=== PATIENT | male | born 1940 | race Caucasian/White ===

== ENCOUNTER → 2016-05-02 | Outpatient (CLI) | payer MEDICARE ==
[~2016-05-02] MED LIST: ACIDOPHILUS1 TAB PO; ADDERALL 20 MG20 MG PO; AFLEXA340 MG PO; ALEVE220 MG PO; ALLOPURINOL100 MG PO; AMOXICILLIN500 MG PO; ANDRO GEL; ANDROGEL2.5 GM T; ASPIRIN81 M1 PO; AUGMENTIN 875 M1 TAB PO; BACTRIM DS 8001 TAB PO; BEANO150 UNIT PO; CALCIUM600 M1 PO; CENTRUM SILVER1 TA1 PO; CENTRUM SILVER1 TA2 PO; CILOSTAZOL100 MG PO; CIPRO250 MG PO; CIPROFLOXACIN500 MG PO; CLARITIN10 MG PO; CODEINE30 MG PO; COENZYME Q-10200 M1 PO; COQ-10100 MG PO; COQ10150 MG PO; COZAAR50 MG PO; Clopidogrel75 MG PO; DICYCLOMINE10 MG PO; FISH OIL1000 MG PO; FLONASE 0.05% 121 EA NAS; GLUCOSAMINE & C1 CA2 PO; GLUCOSAMINE COM1 TAB PO; HYDROCHLOROTHIA25 M1 PO; HYDROCODONE BIT1 T11 PO; HYDRODIURIL25 MG PO; IMODIUM2 MG PO; INDOMETHACIN25 M1 PO; KEFLEX500 MG PO; KONDREMUL2.5 ML/5 M PO; LABETALOL HCL100 MG PO; LIDODERM 5% PATC1 EA PO; LODINE300 MG PO; LOMOTIL 0.025 M1 TA1 PO; LOPRESSOR25 MG PO; LOVAZA1 GM PO; LUNESTA3 MG PO; MASON NATURAL600 MG PO; MOBIC7.5 MG PO; MOTRIN800 MG PO; MULTIPLE VITAMI1 TAB PO; NIACIN500 MG PO; NORFLEX100 MG PO; NORVASC10 MG PO; OXYCONTIN10 MG PO; PEDIALYTE 1001000 ML PO; PLAVIX75 M1 PO; PLAVIX75 MG PO; POLY IRON PN1 TAB PO; POTASSIUM99 M3 PO; PREDNISONE10 MG PO; PREVACID30 MG PO; PRINIVIL20 MG PO; PROBIOTICA100 MILLIO PO; PROVENTIL0.09 MG/AC IH; PYRIDIUM200 MG PO; SIMVASTATIN40 MG PO; SOLARAZE3% T; TAMIFLU75 MG PO; TART CHERRY E1000 MG PO; TESSALON PERLE100 M1 PO; TESTOSTERONE GEL; TYLENOL325 M2 PO; ULTRAM50 MG PO; VIBRAMYCIN100 MG PO; VICO10300 PO; ZANTAC 150150 MG PO; ZOCOR40 MG PO; [UNRECOGNIZED DRUG - OTHER] PO
--- NOTE | ~2016-05-02 | ST ---
[place], [place] EXERCISE STRESS TEST REPORT NAME: GONZALO SY UNIT #: [id number] ROOM: DOCTOR: EVELYN MONTOYA MD BIRTHDATE: [birth year] DOS: 05/02/2016 RESULTS: Lexiscan per protocol. Baseline cardiogram, sinus rhythm with ST depression in the inferior and lateral leads and isolated PVCs. With Lexiscan, there is more pronounced ST depression in the inferior leads. The patient did not develop any chest discomfort. Blood pressure and heart rate response was normal. Nuclear images will be reported separately. FINAL IMPRESSION: Abnormal EKG response with more pronounced ST depression in the inferior leads. No chest discomfort. Blood pressure and heart rate response was normal. Nuclear images will be reported separately. EVELYN MONTOYA MD CM:STRESS:EXERCISE STRESS TEST REPORT [id number] EVELYN MONTOYA MD
== END | disposition home or self-care (01) ==
LOC: CARD 02:39
DX: Z01.810 Encounter for preprocedural cardiovascular examination (principal); I25.10 Atherosclerotic heart disease of native coronary artery without angina pectoris; R53.81 Other malaise

== ENCOUNTER → 2016-05-09 | Outpatient (CLI) | payer MEDICARE ==
[2016-05-09 10:59] LABS: CHOLESTEROL 268 mg/dL (<200); HDL CHOLESTEROL 48 mg/dl (40-60); TRIGLYCERIDES 500 mg/dl (<150)
== END | disposition home or self-care (01) ==
LOC: LAB 10:13
PROVIDERS: Internal Medicine Cardiovascular Disease
DX: E78.5 Hyperlipidemia, unspecified (principal)

== ENCOUNTER 2016-07-25 11:05 | Inpatient (IN) | payer MEDICARE ==
[~2016-07-25] VITALS: Ht 175.2 cm; Wt 79.0 kg
--- NOTE | ~2016-07-25 | WRIGHTHP ---
[place], [place] PATIENT HISTORY AND PHYSICAL EXAM NAME: GONZALO SY [facility] #: [id number] UNIT #: [id number] ROOM: 520 DOCTOR: GILBERT CHAVES MD BIRTHDATE: [birth year] DOS: 07/25/2016 HISTORY OF PRESENT ILLNESS: 1. The patient is a 75-year-old gentleman with a past medical history of recent surgery to the C-spine for chronic pain. 2. History of benign essential hypertension. 3. Vertebral artery occlusion, status post stent placement in the past at [facility]. 4. History of coronary artery disease status post coronary artery bypass graft and stenting of the coronaries at [facility] in the past. 5. History of ischemic colitis with gastrointestinal bleed in 2012. 6. Mixed hyperlipidemia. 7. Benign essential hypertension. The patient presented to the Emergency Department after he fell down steps, resulting in some pain and soreness in his left shoulder. The patient is not sure if he lost consciousness or hit his head. The patient had CT of the lumbar spine, cervical spine and CT of the head performed in the Emergency Department and recommended for admission for dehydration and hypokalemia. After admission, the patient is feeling well except for some soreness in the back of his left shoulder. No chest pain, no shortness of breath, no dizziness, no other GI or urinary symptoms. REVIEW OF SYSTEMS: LUNGS: No increasing shortness of breath or wheezing. GASTROINTESTINAL: No nausea, vomiting, diarrhea, constipation. CARDIOVASCULAR: No chest pain, no palpitations. SOCIAL HISTORY: Lives at home. Denies smoking cigarettes, alcohol and drug abuse. FAMILY HISTORY: Noncontributory. HOME MEDICATIONS: Potassium, labetalol, hydrochlorothiazide, fluoxetine, Plavix, amlodipine, allopurinol, Tylenol. ALLERGIES: Known allergies to ASPIRIN, METOPROLOL, COREG, TRAMADOL, MELOXICAM. PHYSICAL EXAMINATION: GENERAL: Alert and oriented. HEENT AND NECK: Extraocular movements are intact. Sclerae are anicteric. Oral mucosa is moist and clean. No obvious facial weakness. Neck is supple without any lymphadenopathy. No thyromegaly. No JVD. No carotid arterial bruits. LUNGS: Clear to auscultation. No wheezing. No rhonchi. CARDIOVASCULAR SYSTEM: Heart rate is regular in rate and rhythm. S1 and S2 normally audible. No significant murmur or any other abnormal cardiac sounds. ABDOMEN: Soft, nontender. No obvious organomegaly. Bowel sounds are present. No obvious herniation. EXTREMITIES: Without significant cyanosis or edema. Warm to touch. CENTRAL NERVOUS SYSTEM: Without any gross motor deficits. Speech is normal. [place], [place] PATIENT HISTORY AND PHYSICAL EXAM NAME: GONZALO SY UNIT #: [id number] ROOM: [facility] DOCTOR: GILBERT CHAVES MD BIRTHDATE: [birth year] Cranial nerves 2-12 are also intact. The patient is wearing a neck brace. LABORATORY DATA: CT of the head, cervical spine and lumbar spine without any acute abnormality. BUN and creatinine 29 and 1.5. Potassium level of 2.8, improved to 3.1. CPK 352. Normal CBC, PT, PTT. IMPRESSION: 1. The patient with a fall at home with a neck brace in place and some soreness in the left shoulder, but CAT scans of the head, neck and T-spine were without any acute abnormality. The patient had recent surgery to the cervical spine for chronic pains. The patient to be started on physical therapy, hydration with normal saline. 2. Dehydration, hypokalemia with elevation of BUN and creatinine, to be treated with normal saline infusion and extra potassium supplements for hypokalemia. 3. Hypokalemia, being treated with extra potassium supplements and BUN and creatinine and potassium levels are being monitored, will be rechecked in the morning. 4. Chronic gouty arthritis, treated with allopurinol, asymptomatic. 5. Benign essential hypertension. Blood pressures to be monitored, amlodipine and labetalol that he was taking at home have been continued. 6. Major depression, recurrent, mild. I will continue fluoxetine. 7. History of coronary artery disease of the [place] vessels without any chest pains. 8. Mixed hyperlipidemia for which the patient takes Pravachol. GILBERT CHAVES MD CM:HISPHYS:PATIENT HISTORY AND PHYSICAL EXAMINATION 58 15 GILBERT CHAVES MD 07/25/16 315 interface
--- NOTE | ~2016-07-25 | EKG ---
[place], [place] ELECTROCARDIOGRAM REPORT NAME: GONZALO SY UNIT #: [id number] ROOM: [facility] DOCTOR: EVELYN MONTOYA MD BIRTHDATE: [birth year] DOS: 07/25/2016 Time: 11:26:36. Normal sinus rhythm. Left axis deviation. Left anterior fascicular block. Intraventricular conduction delay with nonspecific ST-T changes. EVELYN MONTOYA MD CM:EKGRPT:ELECTROCARDIOGRAM REPORT [id number] EVELYN MONTOYA MD
--- NOTE | ~2016-07-25 | DS ---
[place], [place] DISCHARGE SUMMARY NAME: GONZALO SY [facility] #: [id number] UNIT #: [id number] ROOM: 520 DOCTOR: GILBERT CHAVES MD BIRTHDATE: [birth year] DOS: 07/26/2016 DISCHARGE DIAGNOSES: 1. The patient with fall at home and some left shoulder pains. 2. Recent neck surgery of the cervical spine, chronic pain. 3. Persistent and severe hypokalemia, treated. 4. Benign essential hypertension. 5. Major depression, recurrent, mild. 6. Coronary artery disease of [place] vessels with coronary artery bypass grafts at [facility] in the past. 7. Ischemic colitis with gastrointestinal bleed in 2012. 8. Mixed hyperlipidemia. 9. Benign essential hypertension. 10. Vertebral artery occlusion, status post stent placement at [facility] in the past. HOSPITAL COURSE: The patient presented to the Emergency Department after he slipped down the steps, but the steps were supposed to be well padded and he slid down on his back. The patient had recent surgery to his cervical spine, so there were concerns about injury and he had a CAT scan of his head, neck and thoracic spine, which did not show any acute abnormality. The patient had some left shoulder pains and he is being evaluated by physical therapy. The patient has been ambulating independently in the hallways with no significant neurological deficits compatible with spinal stenosis or any other severe injury. The patient is feeling very well and will be discharged to home after a complete evaluation by physical therapy and once he is cleared by them. Persistent hypokalemia from uncertain etiology. The patient has no nausea, vomiting or diarrhea. He just takes hydrochlorothiazide and was already on potassium supplements. Potassium supplements for increased from 10 to 20 mEq daily and he was given extra potassium during his stay at the hospital. The patient was given extra potassium this morning and a repeat level will be performed at noon. After his potassium is found to be normal and if cleared by physical therapy, he can be discharged to home on his home medications with increased dose of potassium to follow up with his PCP, Dr. Quintana, on Sunday. DISCHARGE MANAGEMENT: Potassium chloride 20 mEq daily, hydrochlorothiazide 25 mg a day, fluoxetine 20 mg a day, Plavix 75 mg a day, amlodipine 10 mg a day, allopurinol 100 mg a day, labetalol 100 mg t.i.d. Follow up with Dr. Quintana on Sunday. Fadia katz [place], [place] DISCHARGE SUMMARY NAME: GONZALO SY UNIT #: [id number] ROOM: [facility] DOCTOR: GILBERT CHAVES MD BIRTHDATE: [birth year] GILBERT CHAVES MD CM:YESSI [id number] GILBERT CHAVES MD 07/26/161857 interface
[2016-07-25 11:10] VITALS: BP 166/81
[2016-07-25 11:36] LABS: BASO % 0.4 % (0.0-1.0); EOS # 0.3 10*3/uL (0.0-0.4); EOS % 3.8 % (1.0-4.0); HEMATOCRIT 40.8 % (42.0-52.0); LYMPH # 2.3 10*3/uL (1.3-4.4); LYMPH % 31.3 % (27.0-41.0); MEAN CELL VOLUME 86.1 fl (80.0-94.0); MEAN CORPUSCULAR HGB 29.5 pg (27.0-31.0); MEAN CORPUSCULAR HGB CONC 34.3 g/dl (33.0-37.0); MEAN PLATELET VOLUME 10.3 fl (9.6-12.3); MONO # 0.8 10*3/uL (0.1-1.0); MONO % 10.5 % (3.0-9.0); NEUT # 3.9 10*3/uL (2.3-7.9); NEUT % 53.7 % (47.0-73.0); PLATELET COUNT AUTOMATED 302 10*3/uL (130-400); RED BLOOD COUNT 4.74 10*6/uL (4.50-5.90); RED CELL DISTRI WIDTH 13.3 % (0-14.5); WHITE BLOOD COUNT 7.3 10*3/uL (4.8-10.8)
[2016-07-25 11:48] LABS: INTERNATIONAL NORM RATIO 1.1 (2.0-3.5); PROTHROMBIN TIME 11.4 SECONDS (9.0-12.4)
[2016-07-25] MEDS ORDERED: METHYLPHENIDATE10 M3 PO (11:49)
[2016-07-25 11:55] LABS: ALBUMIN 3.8 gm/dl (3.1-4.5); ALKALINE PHOSPHATASE 92 U/L (45-117); BILIRUBIN, TOTAL 0.6 mg/dl (0.2-1.0); BUN 29 mg/dl (7-24); CARBON DIOXIDE 20 mmol/L (21-32); CHLORIDE 102 mmol/L (98-107); CPK 352 U/L (39-308); EST GLOM FILT AFRICAN AMERICAN 53 ml/min; GLUCOSE 105 mg/dL (65-99); MAGNESIUM 2.1 mg/dL (1.5-2.1); POTASSIUM 2.8 mmol/L (3.5-5.1); SGOT/AST 29 IU/L (3-35); SGPT/ALT 29 U/L (12-78); SODIUM 139 mmol/L (136-145); TOTAL PROTEIN 7.6 gm/dL (6.4-8.2)
[2016-07-25 12:03] LABS: TROPONIN I < 0.015 ng/ml (<0.045)
[2016-07-25 12:04] LABS: CKMB 6.3 ng/ml (0.5-3.6)
[2016-07-25 14:49] VITALS: BP 133/68
[2016-07-25 16:00] VITALS: BP 168/93
[2016-07-25] MEDS ORDERED: POTASSIUM CHLO10 ME5 PO (17:12)
[2016-07-25] MEDS ORDERED: PROZAC20 MG PO (17:14)
[2016-07-25 20:00] VITALS: BP 154/76
[2016-07-26] VITALS: BP 154/79
[2016-07-26 05:34] VITALS: BP 134/77
[2016-07-26 07:48] LABS: BASO % 0.4 % (0.0-1.0); EOS # 0.3 10*3/uL (0.0-0.4); EOS % 4.9 % (1.0-4.0); HEMATOCRIT 38.3 % (42.0-52.0); HEMOGLOBIN 12.6 g/dl (14.0-18.0); LYMPH # 1.7 10*3/uL (1.3-4.4); LYMPH % 25.8 % (27.0-41.0); MEAN CELL VOLUME 88.9 fl (80.0-94.0); MEAN CORPUSCULAR HGB 29.2 pg (27.0-31.0); MEAN CORPUSCULAR HGB CONC 32.9 g/dl (33.0-37.0); MEAN PLATELET VOLUME 10.6 fl (9.6-12.3); MONO # 0.8 10*3/uL (0.1-1.0); MONO % 11.6 % (3.0-9.0); NEUT # 3.8 10*3/uL (2.3-7.9); NEUT % 56.9 % (47.0-73.0); PLATELET COUNT AUTOMATED 262 10*3/uL (130-400); RED BLOOD COUNT 4.31 10*6/uL (4.50-5.90); RED CELL DISTRI WIDTH 13.6 % (0-14.5); WHITE BLOOD COUNT 6.7 10*3/uL (4.8-10.8)
[2016-07-26 08:00] VITALS: BP 137/71
[2016-07-26 08:20] LABS: BUN 21 mg/dl (7-24); CARBON DIOXIDE 24 mmol/L (21-32); CHLORIDE 105 mmol/L (98-107); EST GLOM FILT AFRICAN AMERICAN > 60 ml/min; GLUCOSE 89 mg/dL (65-99); POTASSIUM 3.1 mmol/L (3.5-5.1); SODIUM 139 mmol/L (136-145)
[2016-07-26] MEDS ORDERED: KLOR-CON M2020 ME1 PO (09:02)
[2016-07-26 12:00] VITALS: BP 112/74
[2016-07-26 16:00] VITALS: BP 116/70
== END 2016-07-26 18:15 | disposition home or self-care (01) | DRG 641 ==
LOC: ED 11:05 → EDHOLD 13:50 → 5E 13:50
PROVIDERS: Internal Medicine; Registered Nurse
DX: E86.0 Dehydration (principal); F33.9 Major depressive disorder, recurrent, unspecified; I10 Essential (primary) hypertension; E87.6 Hypokalemia; W10.9XXA Fall (on) (from) unspecified stairs and steps, initial encounter; M1A.9XX0 Chronic gout, unspecified, without tophus (tophi); I25.10 Atherosclerotic heart disease of native coronary artery without angina pectoris; E78.2 Mixed hyperlipidemia; Z66 Do not resuscitate; M25.512 Pain in left shoulder; G89.29 Other chronic pain; Y93.89 Activity, other specified; Y99.8 Other external cause status; Z79.899 Other long term (current) drug therapy; Z88.6 Allergy status to analgesic agent; Z88.8 Allergy status to other drugs, medicaments and biological substances; Y92.009 Unspecified place in unspecified non-institutional (private) residence as the place of occurrence of the external cause

== ENCOUNTER → 2016-08-09 | Outpatient (CLI) | payer MEDICARE ==
[~2016-08-09] MED LIST changes: +KLOR-CON M2020 ME1 PO; +METHYLPHENIDATE10 M3 PO; +POTASSIUM CHLO10 ME5 PO; +PROZAC20 MG PO
== END | disposition home or self-care (01) ==
LOC: RAD 08-02 11:30 → NM 02:48 → RAD 11:30
DX: M85.9 Disorder of bone density and structure, unspecified (principal)

== ENCOUNTER → 2016-08-16 | Outpatient (CLI) | payer MEDICARE | END | disposition home or self-care (01) | LOC: LAB 09:49 | PROVIDERS: Internal Medicine | DX: R06.02 Shortness of breath (principal) ==

== ENCOUNTER → 2016-08-18 | Outpatient (CLI) | payer MEDICARE | END | disposition home or self-care (01) | LOC: CT 02:59 | DX: R06.02 Shortness of breath (principal) ==

== ENCOUNTER → 2016-11-15 | Outpatient (CLI) | payer MEDICARE ==
[2016-11-15 10:50] LABS: ACT PARTIAL THROMBO TIME 26.1 SECONDS (20.8-31.5)
== END | disposition home or self-care (01) ==
LOC: LAB 00:40 → EDSTATUS 11:00 → SDC 11:00
PROVIDERS: Internal Medicine
DX: E04.1 Nontoxic single thyroid nodule (principal); R79.1 Abnormal coagulation profile

== ENCOUNTER → 2016-11-28 | Outpatient (CLI) | payer MEDICARE ==
[2016-11-28 11:49] LABS: CREATININE 1.49 mg/dL (0.70-1.30)
== END | disposition home or self-care (01) ==
LOC: LAB 10:38 → MRI 10:38
PROVIDERS: Radiology Diagnostic Radiology
DX: M54.2 Cervicalgia (principal)

== ENCOUNTER → 2017-06-18 | Outpatient (CLI) | payer MEDICARE | END | disposition home or self-care (01) | LOC: US 13:48 | DX: E04.1 Nontoxic single thyroid nodule (principal) ==

== ENCOUNTER 2017-09-05 21:04 | Inpatient (IN) | payer MEDICARE ==
[~2017-09-05] VITALS: Ht 175.2 cm; Wt 83.6 kg
--- NOTE | ~2017-09-05 | DS ---
[place], [place] DISCHARGE SUMMARY NAME: GONZALO SY [facility] #: [id number] UNIT #: [id number] ROOM: 528 DOCTOR: GILBERT CHAVES MD BIRTHDATE: [birth year] DOS: 09/07/2017 SUBJECTIVE: The patient without any angina-like symptoms. OBJECTIVE: VITAL SIGNS: Blood pressure 118/67, heart rate 66 beats per minute, breathing 18 times per minute, afebrile. GENERAL APPEARANCE: The patient is alert and oriented x 3, in no visible distress. HEENT AND NECK: Exam within normal limits. CARDIOVASCULAR SYSTEM: Heart rate is regular in rate and rhythm. S1 and S2 normally audible. LUNGS: Clear to auscultation. ABDOMEN: Soft, nontender. No obvious organomegaly. Bowel sounds are present. EXTREMITIES: Without significant cyanosis or edema. IMPRESSION: 1. The patient with coronary artery disease of the [place] vessels with recent angina symptoms, presently asymptomatic. 2. Positive cardiac stress test for a moderate area of reversible ischemia in the anterior lateral wall. Dr. Ramirez is trying to transfer the patient to [facility] depending on bed availability for a heart catheterization for further management. 3. Hypokalemia, resolved with extra potassium supplements. 4. Stage 3A chronic kidney disease. 5. Gastroesophageal reflux disease and esophagitis, asymptomatic with ranitidine. 6. Benign essential hypertension, treated and controlled. The patient on labetalol and amlodipine. 7. The patient has had colonic bleeds and his aspirin had to be stopped. He still remains on Plavix. Because of the high risk for gastrointestinal bleed, I will not start him on IV heparin, which I was otherwise planning to. 8. History of coronary artery disease and coronary artery bypass grafts at [facility] in the past. 9. Ischemic colitis with gastrointestinal bleed in 2012. 10. Mixed hyperlipidemia. 11. Vertebral artery occlusion, status post stent placement at [facility] in the past. LABORATORY DATA: Cardiac enzymes were negative. DISCHARGE MANAGEMENT: Potassium chloride 20 mEq daily, hydrochlorothiazide 25 mg daily, Plavix 75 mg daily, allopurinol 100 mg daily, gabapentin 300 mg t.i.d., Pepcid 20 mg b.i.d., amlodipine 10 mg a day, labetalol 100 mg t.i.d., nitro paste 1 inch every 6 hours, Tylenol p.r.n., modafinil 200 mg daily. [place], [place] DISCHARGE SUMMARY NAME: GONZALO SY UNIT #: [id number] ROOM: 528 DOCTOR: GILBERT CHAVES MD BIRTHDATE: [birth year] GILBERT CHAVES MD CM:DISCHARG [id number] GILBERT CHAVES MD 09/08/17 0547 interface
--- NOTE | ~2017-09-05 | EKG ---
[place], [place] ELECTROCARDIOGRAM REPORT NAME: GONZALO SY UNIT #: [id number] ROOM: 528 DOCTOR: SUSANA DRAFT REPORT BIRTHDATE: [birth year] [facility] Test Date: 2017-09-05 Test Time: 23:59:05 Pat Name: GONZALO SY Department: Room: Gender: Obstetrical Nurse: SS RESP : 1940 Requested By: ESPERANZA THURMAN Order Number: [id number] Reading MD: Riley Ramirez MD Measurements Intervals [place] Rate: 63 P: 9 TN: 249 QRS: -55 QRSD: 126 T: 241 QT: 412 QTc: 422 Interpretive Statements Sinus rhythm Prolonged TN interval Left bundle branch block Baseline wander in lead(s) V1 Electronically Signed On 09-06-2017 11:32:31 PDT by Riley Ramirez MD CM:EKGRPT:ELECTROCARDIOGRAM REPORT [id number] 1132 ESPERANZA YEPEZ DRAFT REPORT ESPERANZA THURMAN DO
--- NOTE | ~2017-09-05 | EKG ---
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
--- NOTE | ~2017-09-05 | EKG ---
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
--- NOTE | ~2017-09-05 | WRIGHTHP ---
[place], [place] PATIENT HISTORY AND PHYSICAL EXAM NAME: GONZALO SY [facility] #: [id number] UNIT #: [id number] ROOM: 528 DOCTOR: GILBERT CHAVES MD BIRTHDATE: [birth year] DOS: 09/05/2017 REASON FOR ADMISSION: 1. The patient is a 76-year-old gentleman with a past medical history of surgery of the cervical spine. 2. Benign essential hypertension. 3. Major depression, recurrent, mild. 4. Coronary artery disease of [place] vessels and coronary artery bypass grafts at [facility] in the past. 5. Ischemic colitis with gastrointestinal bleeding in 2012. 6. Mixed hyperlipidemia. 7. Vertebral artery occlusion, status post stent placement at [facility]. HISTORY OF PRESENT ILLNESS: The patient presented to the Emergency Department with upper chest pains radiating into the neck, which she had a few days earlier and they resolved spontaneously, but the symptoms occurred again prior to admission and they were getting worse. The patient felt somewhat nauseous, but had no vomiting. The patient was treated in the Emergency Department and his symptoms resolved. Following this, he was admitted to a monitored bed and has been asymptomatic since. His merchandise worker, Dr. Ramirez was consulted and has recommended a cardiac stress test on him, which would be performed tomorrow morning and has been scheduled. SYSTEMS REVIEW: RESPIRATORY: No increasing shortness of breath. GASTROINTESTINAL: Episode of nausea, but no vomiting. CARDIOVASCULAR SYSTEM: Complains of recurrent chest pains. FAMILY HISTORY: Noncontributory. HOME MEDICATIONS: Ranitidine, potassium, hydrochlorothiazide, Plavix, allopurinol, gabapentin, amlodipine, labetalol, modafinil. ALLERGIES: KNOWN ALLERGIES TO ASPIRIN, METOPROLOL, COREG, TRAMADOL, MELOXICAM. PHYSICAL EXAMINATION: GENERAL: Alert and oriented x 3, in no visible distress. HEENT AND NECK: Extraocular movements are intact. Sclerae are anicteric. Oral mucosa is moist and clean. No obvious facial weakness. Neck is supple without any lymphadenopathy. No thyromegaly. No JVD. No carotid arterial bruits. LUNGS: Clear to auscultation. No wheezing. No rhonchi. CARDIOVASCULAR SYSTEM: Heart rate is regular in rate and rhythm. S1 and S2 normally audible. No significant murmur or any other abnormal cardiac sounds. ABDOMEN: Soft, nontender. No obvious organomegaly. Bowel sounds are present. No obvious herniation. EXTREMITIES: Without significant cyanosis or edema. Warm to touch. CENTRAL NERVOUS SYSTEM: Alert and oriented x 3. Cranial nerves II-XII are intact. Speech is normal. The patient is able to move all extremities. Normal muscle strength. Deep tendon reflexes are equal on both sides. Plantars were downgoing. [place], [place] PATIENT HISTORY AND PHYSICAL EXAM NAME: [id number] UNIT #: [id number] ROOM: 528 DOCTOR: GILBERT CHAVES MD BIRTHDATE: [birth year] DIAGNOSTIC DATA: The patient's echocardiogram report was normal. Cardiac enzymes have been normal. IMPRESSION: 1. History of coronary artery disease of the [place] vessels with complaints of recent angina-like symptoms with normal cardiac enzymes. The patient is scheduled for a cardiac stress test in the morning and is presently asymptomatic. 2. Hypokalemia with potassium level of 3.3. I will give him extra potassium supplements. 3. Chronic gouty arthritis, presently asymptomatic. The patient remains on allopurinol. 4. Benign essential hypertension, treated with amlodipine, labetalol and blood pressures are reasonably controlled. 5. Gastroesophageal reflux disease and esophagitis, asymptomatic with ranitidine. GILBERT CHAVES MD CM:HISPHYS:PATIENT HISTORY AND PHYSICAL EXAMINATION 39 55 GILBERT CHAVES MD 09/06/172053 interface
[2017-09-05 21:07] VITALS: BP 160/88
[2017-09-05 21:23] LABS: BASO # 0.1 10*3/uL (0.0-0.1); BASO % 0.5 % (0.0-1.0); EOS # 0.3 10*3/uL (0.0-0.4); EOS % 3.3 % (1.0-4.0); HEMATOCRIT 44.4 % (42.0-52.0); HEMOGLOBIN 15.3 g/dl (14.0-18.0); LYMPH # 2.2 10*3/uL (1.3-4.4); LYMPH % 22.7 % (27.0-41.0); MEAN CELL VOLUME 88.8 fl (80.0-94.0); MEAN CORPUSCULAR HGB 30.6 pg (27.0-31.0); MEAN CORPUSCULAR HGB CONC 34.5 g/dl (33.0-37.0); MEAN PLATELET VOLUME 10.1 fl (9.6-12.3); MONO # 0.9 10*3/uL (0.1-1.0); MONO % 9.2 % (3.0-9.0); NEUT # 6.3 10*3/uL (2.3-7.9); NEUT % 63.9 % (47.0-73.0); PLATELET COUNT AUTOMATED 319 10*3/uL (130-400); RED CELL DISTRI WIDTH 13.7 % (0-14.5); WHITE BLOOD COUNT 9.8 10*3/uL (4.8-10.8)
[2017-09-05] MEDS ORDERED: PROVIGIL200 MG PO (21:24)
[2017-09-05] MEDS ORDERED: CENTRUM SILVER1 EACH PO (21:24)
[2017-09-05] MEDS ORDERED: ADDERALL 10 MG10 MG PO (21:24)
[2017-09-05] MEDS ORDERED: NEURONTIN300 MG PO (21:25)
[2017-09-05 21:33] VITALS: BP 134/74
[2017-09-05 21:58] VITALS: BP 133/78
[2017-09-05 22:16] LABS: ALBUMIN 3.7 gm/dl (3.1-4.5); CREATININE 1.73 mg/dL (0.70-1.30); POTASSIUM 3.3 mmol/L (3.5-5.1); TOTAL PROTEIN 7.5 gm/dL (6.4-8.2)
[2017-09-05 22:23] LABS: TROPONIN I 0.044 ng/ml (<0.045)
[2017-09-05 23:27] VITALS: BP 154/80; BP 157/81
[2017-09-06 03:02] LABS: CREATININE 1.47 mg/dL (0.70-1.30); POTASSIUM 3.3 mmol/L (3.5-5.1)
[2017-09-06 04:00] VITALS: BP 115/75
[2017-09-06 08:00] VITALS: BP 116/66
[2017-09-06 08:30] VITALS: BP 112/70
[2017-09-06 16:00] VITALS: BP 126/81
[2017-09-06 20:00] VITALS: BP 151/74
[2017-09-07] VITALS: BP 136/62
[2017-09-07 07:04] LABS: CREATININE 1.52 mg/dL (0.70-1.30); POTASSIUM 3.6 mmol/L (3.5-5.1)
[2017-09-07 07:31] VITALS: BP 136/59
[2017-09-07 12:00] VITALS: BP 137/69; BP 138/63
[2017-09-07 14:11] VITALS: BP 138/64
[2017-09-07 16:00] VITALS: BP 118/67
[2017-09-07 20:00] VITALS: BP 136/64
== END 2017-09-07 21:30 | disposition short-term general hospital (02) | DRG 641 ==
LOC: ED 21:04 → 5E 22:46 → EDHOLD 22:46 → 5E 23:01
PROVIDERS: Emergency Medicine; Internal Medicine
PROC: 4A02XM4 Measurement of Cardiac Total Activity, External Approach (ICD-10-PCS; principal; 2017-09-07)
PROC: 3E073KZ Introduction of Other Diagnostic Substance into Coronary Artery, Percutaneous Approach (ICD-10-PCS; principal; 2017-09-07)
DX: E87.6 Hypokalemia (principal); N18.3 Chronic kidney disease, stage 3 (moderate); F33.0 Major depressive disorder, recurrent, mild; R07.9 Chest pain, unspecified; I25.10 Atherosclerotic heart disease of native coronary artery without angina pectoris; I65.09 Occlusion and stenosis of unspecified vertebral artery; E78.2 Mixed hyperlipidemia; K21.0 Gastro-esophageal reflux disease with esophagitis; I12.9 Hypertensive chronic kidney disease with stage 1 through stage 4 chronic kidney disease, or unspecified chronic kidney disease; M10.071 Idiopathic gout, right ankle and foot; M10.9 Gout, unspecified; Z66 Do not resuscitate; Z51.5 Encounter for palliative care; Z95.1 Presence of aortocoronary bypass graft; Z88.6 Allergy status to analgesic agent; Z88.8 Allergy status to other drugs, medicaments and biological substances; Z79.899 Other long term (current) drug therapy; Z87.440 Personal history of urinary (tract) infections; Z98.1 Arthrodesis status; Z95.5 Presence of coronary angioplasty implant and graft; Z82.49 Family history of ischemic heart disease and other diseases of the circulatory system; Z80.8 Family history of malignant neoplasm of other organs or systems

== ENCOUNTER → 2017-10-16 | Outpatient (CLI) | payer MEDICARE ==
[~2017-10-16] MED LIST changes: +ADDERALL 10 MG10 MG PO; +CENTRUM SILVER1 EACH PO; +IMDUR SA30 MG PO; +LISINOPRIL5 MG PO; +NEURONTIN300 MG PO; +NITROSTAT0.4 MG SL; +PROVIGIL200 MG PO
--- NOTE | ~2017-10-16 | ST ---
[place], [place] EXERCISE STRESS TEST REPORT NAME: GONZALO SY UNIT #: [id number] ROOM: DOCTOR: EVELYN MONTOYA MD BIRTHDATE: [birth year] DOS: 10/16/2017 PORTION OF THE LEXISCAN CARDIOLITE Baseline cardiogram, sinus rhythm with ST depressions in the inferior and lateral leads, 0.4 mg of Lexiscan, duration of 10 seconds. No new EKG changes, but underlying EKG makes the test indeterminate. The patient did have some shortness of breath. No chest discomfort. Blood pressure and heart rate normal. Nuclear images will be reported separately. EVELYN MONTOYA MD CM:STRESS:EXERCISE STRESS TEST REPORT 0716 0726 EVELYN MONTOYA MD
== END | disposition home or self-care (01) ==
LOC: CARD 00:22
DX: I20.9 Angina pectoris, unspecified (principal); R53.81 Other malaise

== ENCOUNTER → 2018-02-25 | Outpatient (CLI) | payer MEDICARE ==
[~2018-02-25] MED LIST changes: +COLCRYS0.6 M1 PO; +ELIQUIS5 M1 PO; +GABAPENTIN600 MG PO; +GLUCOSAMINE-CH1 EA36 PO; +HYDROCODONE-AC1 EAC1 PO
[2018-02-25 12:22] LABS: BASO % 0.4 % (0.0-1.0); EOS # 0.2 10*3/uL (0.0-0.4); EOS % 3.1 % (1.0-4.0); HEMATOCRIT 46.2 % (42.0-52.0); HEMOGLOBIN 15.3 g/dl (14.0-18.0); LYMPH # 1.3 10*3/uL (1.3-4.4); LYMPH % 18.7 % (27.0-41.0); MEAN CELL VOLUME 91.8 fl (80.0-94.0); MEAN CORPUSCULAR HGB 30.4 pg (27.0-31.0); MEAN CORPUSCULAR HGB CONC 33.1 g/dl (33.0-37.0); MEAN PLATELET VOLUME 10.5 fl (9.6-12.3); MONO # 0.7 10*3/uL (0.1-1.0); MONO % 9.1 % (3.0-9.0); NEUT # 4.8 10*3/uL (2.3-7.9); NEUT % 68.1 % (47.0-73.0); PLATELET COUNT AUTOMATED 271 10*3/uL (130-400); RED BLOOD COUNT 5.03 10*6/uL (4.50-5.90); RED CELL DISTRI WIDTH 13.3 % (0-14.5); WHITE BLOOD COUNT 7.1 10*3/uL (4.8-10.8)
[2018-02-25 12:51] LABS: ALBUMIN 3.5 gm/dl (3.1-4.5); CREATININE 1.47 mg/dL (0.70-1.30); FREE T4 0.76 ng/dl (0.76-1.46); POTASSIUM 3.9 mmol/L (3.5-5.1); TOTAL PROTEIN 7.3 gm/dL (6.4-8.2)
[2018-02-25 12:56] LABS: THYROID STIM HORMONE (HS) 1.03 uIU/ml (0.358-4.75)
[2018-02-25 14:08] LABS: VITAMIN D, 25-HYDROXY 40.3 ng/mL (30-100)
== END | disposition home or self-care (01) ==
LOC: LAB 11:55
PROVIDERS: Internal Medicine
DX: E11.9 Type 2 diabetes mellitus without complications (principal); E55.9 Vitamin D deficiency, unspecified

== ENCOUNTER → 2018-03-08 | Outpatient (CLI) | payer MEDICARE | END | disposition home or self-care (01) | LOC: US 13:08 | DX: R79.89 Other specified abnormal findings of blood chemistry (principal); Z85.820 Personal history of malignant melanoma of skin ==

== ENCOUNTER → 2018-09-09 | Outpatient (CLI) | payer MEDICARE ==
[~2018-09-09] MED LIST changes: +RANOLAZINE ER500 MG PO
[2018-09-09 12:15] LABS: CREATININE 1.6 mg/dL (0.70-1.30); POTASSIUM 3.6 mmol/L (3.5-5.1)
== END | disposition home or self-care (01) ==
LOC: LAB 11:05
PROVIDERS: Internal Medicine
DX: N18.3 Chronic kidney disease, stage 3 (moderate) (principal)

== ENCOUNTER → 2018-09-20 | Outpatient (CLI) | payer MEDICARE | END | disposition home or self-care (01) | LOC: US 01:07 | DX: E04.1 Nontoxic single thyroid nodule (principal) ==

== ENCOUNTER → 2018-10-22 | Outpatient (CLI) | payer MEDICARE | END | disposition home or self-care (01) | LOC: CARD 13:33 | DX: I09.89 Other specified rheumatic heart diseases (principal); I25.10 Atherosclerotic heart disease of native coronary artery without angina pectoris ==

== ENCOUNTER 2018-12-27 13:07 | Inpatient (IN) | payer MEDICARE ==
[~2018-12-27] VITALS: Ht 175.3 cm; Wt 83.0 kg
--- NOTE | ~2018-12-27 | EKG ---
[place], [place] ELECTROCARDIOGRAM REPORT NAME: GONZALO SY UNIT #: [id number] ROOM: 505 DOCTOR: SUSANA DRAFT REPORT BIRTHDATE: [birth year] [facility] Test Date: 2018-12-27 Test Time: 14:02:18 Pat Name: GONZALO SY Department: Room: 505 Gender: M [employer] Supervisor: : 1940 Requested By: RADHA PARIS Order Number: [id number] Reading MD: Roman Shelley MD Measurements Intervals [place] Rate: 62 P: 41 MD: 249 QRS: -45 QRSD: 126 T: -66 QT: 426 QTc: 433 Interpretive Statements Sinus rhythm Prolonged MD interval Left bundle branch block Compared to ECG 08/22/2018 17:14:36 Left bundle-branch block now present Intraventricular conduction delay no longer present Electronically Signed On 12-29-2018 8:48:15 PST by Roman Shelley MD CM:EKGRPT:ELECTROCARDIOGRAM REPORT [id number] 0848 RADHA MEZA DRAFT REPORT RADHA ARREOLA
--- NOTE | ~2018-12-27 | EKG ---
[place], [place] ELECTROCARDIOGRAM REPORT NAME: GONZALO SY UNIT #: [id number] ROOM: 505 DOCTOR: SUSANA DRAFT REPORT BIRTHDATE: [birth year] [facility] Test Date: 2018-12-27 Test Time: 16:36:35 Pat Name: GONZALO SY Department: Room: 505 Gender: M Bearingizer: : 1940 Requested By: GRISEL VILLANUEVA Order Number: [id number] Reading MD: Roman Shelley MD Measurements Intervals [place] Rate: 63 P: 16 AZ: 237 QRS: -50 QRSD: 127 T: -72 QT: 432 QTc: 443 Interpretive Statements Sinus rhythm Prolonged [place] interval Left bundle branch block Compared to ECG 08/22/2018 17:14:36 Left bundle-branch block now present Intraventricular conduction delay no longer present Electronically Signed On 12-29-2018 8:48:22 PST by Roman Shelley MD CM:EKGRPT:ELECTROCARDIOGRAM REPORT [id number] 0848 GRISEL MEZA DRAFT REPORT GRISEL VILLANUEVA
[2018-12-27 13:07] VITALS: BP 164/78
[2018-12-27 14:11] LABS: BASO # 0.1 10*3/uL (0.0-0.1); BASO % 0.6 % (0.0-1.0); EOS # 0.4 10*3/uL (0.0-0.4); EOS % 4.8 % (1.0-4.0); HEMATOCRIT 40.9 % (42.0-52.0); HEMOGLOBIN 13.2 g/dl (14.0-18.0); LYMPH # 1.8 10*3/uL (1.3-4.4); LYMPH % 19.8 % (27.0-41.0); MEAN CORPUSCULAR HGB 30.3 pg (27.0-31.0); MEAN CORPUSCULAR HGB CONC 32.3 g/dl (33.0-37.0); MEAN PLATELET VOLUME 10.1 fl (9.6-12.3); NEUT # 5.8 10*3/uL (2.3-7.9); NEUT % 63.5 % (47.0-73.0); PLATELET COUNT AUTOMATED 274 10*3/uL (130-400); RED BLOOD COUNT 4.35 10*6/uL (4.50-5.90); RED CELL DISTRI WIDTH 12.6 % (0-14.5); WHITE BLOOD COUNT 9.1 10*3/uL (4.8-10.8)
[2018-12-27 14:23] LABS: ACT PARTIAL THROMBO TIME 28.2 SECONDS (20.0-32.1)
[2018-12-27 14:26] LABS: ALBUMIN 3.1 gm/dl (3.1-4.5); ALKALINE PHOSPHATASE 92 U/L (45-117); BUN 24 mg/dl (7-24); CHLORIDE 108 mmol/L (98-107); CREATININE 1.36 mg/dL (0.70-1.30); LIPASE 153 U/L (73-393); POTASSIUM 3.6 mmol/L (3.5-5.1); SGOT/AST 20 IU/L (3-35); SGPT/ALT 26 U/L (12-78); SODIUM 139 mmol/L (136-145); TOTAL PROTEIN 6.7 gm/dL (6.4-8.2); TROPONIN I < 0.015 ng/ml (<0.045)
--- NOTE | 2018-12-27 14:36 | NUR ---
PT RESTING QUEITLY, VOICES NO COMPLAINTS, WATER AND SNACK PROVIED. IV FLUIDS INFUSING PER ORDER. AT THE BEDSIDE.
[2018-12-27 17:20] VITALS: BP 136/82
--- NOTE | 2018-12-27 17:20 | NUR ---
A 78, admitted to 5E, under the services of AYDE Barrientos DO with a diagnosis of PNEUMONITIS. Chief complaint is SHORTNESS OF BREATH, COLD SYMPTOMS FOR 1 WEEK.. Patient arrived via bed from ER. Monitor applied. Initial assessment completed. Vital signs taken and recorded. AYDE BARRIENTOS DO notified of admission to the unit. Orders received. See assessment for past medical history, medications and allergies. Patient and/or family oriented to unit. [address] visitation policy reviewed. Clothing/patient valuable form completed. LASHON HERNANDEZ R
--- NOTE | 2018-12-27 17:36 | NUR ---
CALLED DR. HAWKINS ANSWERING SERVICE THEY WILL MAKE HIM AWARE OF CONSULT.
--- NOTE | 2018-12-27 18:19 | NUR ---
CALLED SHE ISN'T ABLE TO READ LIST OF MEDICATION OVER THE PHONE. SHE WILL BRING ALL MEDICATIONS DOWN TOMORROW WHEN SHE COMES TO VISIT.
--- NOTE | 2018-12-27 18:20 | NUR ---
CALLED DR. VILLANUEVA MADE AWARE THAT WILL BRING IN HOME MEDICATIONS TOMORROW. BUT SHE STATES HE HAD ALL MEDICATIONS TODAY.
[2018-12-27 20:00] VITALS: BP 155/72
[2018-12-27] MEDS ORDERED: PLAVIX75 M1 PO (20:40)
[2018-12-27] MEDS ORDERED: ASPIRIN ADULT L81 M1 PO (20:42)
--- NOTE | 2018-12-27 21:03 | NUR ---
NOTIFED RESIDENT OF UPDATED MEDICATION LIST.
--- NOTE | 2018-12-27 22:37 | NUR ---
WOUND DOCUMENTATION NOT COMPLETED ON PT PRIOR TO ADMISSION TO UNIT.THIS RN CALLED AND SPOKE WITH RN PARMINDER WHO ADVISES PT WAS ADMITTED WITHOUT ANY WOUNDS NOTED.THIS RN UPDATED WOUND DOCUMENTATION UNDER ASSEMENTS.ED DISCHARGE ASSESSMENT COMPLETED ALSO.
[2018-12-28] VITALS: BP 138/79
[2018-12-28 06:33] LABS: BASO % 0.6 % (0.0-1.0); EOS # 0.5 10*3/uL (0.0-0.4); EOS % 6.5 % (1.0-4.0); HEMATOCRIT 40.2 % (42.0-52.0); LYMPH % 27.2 % (27.0-41.0); MEAN CELL VOLUME 93.7 fl (80.0-94.0); MEAN CORPUSCULAR HGB 30.3 pg (27.0-31.0); MEAN CORPUSCULAR HGB CONC 32.3 g/dl (33.0-37.0); MEAN PLATELET VOLUME 9.9 fl (9.6-12.3); MONO # 0.9 10*3/uL (0.1-1.0); MONO % 11.7 % (3.0-9.0); NEUT # 3.9 10*3/uL (2.3-7.9); NEUT % 53.4 % (47.0-73.0); PLATELET COUNT AUTOMATED 277 10*3/uL (130-400); RED BLOOD COUNT 4.29 10*6/uL (4.50-5.90); RED CELL DISTRI WIDTH 12.7 % (0-14.5); WHITE BLOOD COUNT 7.2 10*3/uL (4.8-10.8)
[2018-12-28 06:51] LABS: ALBUMIN 2.9 gm/dl (3.1-4.5); ALKALINE PHOSPHATASE 91 U/L (45-117); BUN 22 mg/dl (7-24); CHLORIDE 112 mmol/L (98-107); CHOLESTEROL 125 mg/dL (<200); CREATININE 1.35 mg/dL (0.70-1.30); PHOSPHOROUS 3.1 mg/dL (2.5-4.9); POTASSIUM 3.5 mmol/L (3.5-5.1); SGOT/AST 19 IU/L (3-35); SGPT/ALT 27 U/L (12-78); SODIUM 144 mmol/L (136-145); TOTAL PROTEIN 6.5 gm/dL (6.4-8.2); TRIGLYCERIDES 279 mg/dl (<150); VLDL CHOLESTEROL 56 mg/dL (6-40)
[2018-12-28 06:57] LABS: FREE T4 0.73 ng/dl (0.76-1.46); HDL CHOLESTEROL 35 mg/dl (40-60); LDL CHOLESTEROL 34 mg/dL (9-159)
[2018-12-28 07:44] LABS: VITAMIN D, 25-HYDROXY 31.1 ng/mL (30-100)
[2018-12-28 08:00] VITALS: BP 170/90
--- NOTE | 2018-12-28 08:42 | NUR ---
C/O PAIN OF 6/10 TO NECK. NORCO GIVEN AT THIS TIME. WILL CONT TO MONITOR.CALL LIGHT IN REACH.
--- NOTE | 2018-12-28 09:42 | NUR ---
VALERIE EFF. WILL CONT TO MONITOR. CALL LIGHT IN REACH.
[2018-12-28 12:00] VITALS: BP 159/75
[2018-12-28 16:00] VITALS: BP 144/95; BP 150/67
--- NOTE | 2018-12-28 19:05 | NUR ---
ARRIVED ON SHIFT, INTRODUCED TO PATIENT, REPORT RECEIVED, NO NEEDS VOICED AT THIS TIME. WHITE BOARD UPDATED.
--- NOTE | 2018-12-28 19:49 | NUR ---
PATIENT C/O OF NECK PAIN 7/10 DESCRIBES CRAMPING PAIN.
[2018-12-28 20:00] VITALS: BP 150/66
--- NOTE | 2018-12-28 20:24 | NUR ---
24 HR chart check completed.
--- NOTE | 2018-12-28 20:48 | NUR ---
PATIENT REPORTS GOOD EFFECT FROM NORCO GIVEN X 1 HOUR AGO
[2018-12-29] VITALS: BP 142/81
--- NOTE | 2018-12-29 02:03 | NUR ---
PATIENT C/O NECK PAIN 07/22 MEDICATED WITH NORCO ORDERD.
--- NOTE | 2018-12-29 03:00 | NUR ---
GOOD EFFECT FROM NORCO GIVEN X 1 HOUR AGO EVIDENCED BY PATIENT RESTING QUIETLY WITH EYES CLOSED.
[2018-12-29 06:51] LABS: CREATININE 1.53 mg/dL (0.70-1.30); POTASSIUM 3.9 mmol/L (3.5-5.1)
--- NOTE | 2018-12-29 07:01 | NUR ---
PATIENT C/O OF NECK PAIN 08/21 MEDICATED WITH NORCO ORDERD PRN.
[2018-12-29 08:00] VITALS: BP 148/80
--- NOTE | 2018-12-29 08:06 | NUR ---
C/O NAUSEA. ZOFRAN GIVEN AT THIS TIME. WILL CONT TO MONITOR. CALL LIGHT IN REACH.
--- NOTE | 2018-12-29 09:03 | NUR ---
AVERY EFF. WILL CONT TO MONITOR. CALL LIGHT IN REACH.
[2018-12-29] MEDS ORDERED: CETIRIZINE HYDR10 MG PO (09:58)
[2018-12-29] MEDS ORDERED: MUCINEX ER600 MG PO (09:58)
[2018-12-29] MEDS ORDERED: ZITHROMAX250 MG PO (09:58)
--- NOTE | 2018-12-29 11:44 | NUR ---
PT DISCHARGED AT THIS TIME. IV REMOVED AND PRESSURE DRESSING APPLIED. HEART MONITOR RETURNED TO FLOOR. VERBALIZED UNDERSTANDING OF DISCHARGE INSTRUCTIONS.
== END 2018-12-29 12:04 | disposition home or self-care (01) | DRG 194 ==
LOC: ED 13:07 → EDHOLD 15:58 → 5E 16:37
PROVIDERS: Internal Medicine; Physician Assistant; ADMIT Family Medicine
DX: J18.9 Pneumonia, unspecified organism (principal); E44.0 Moderate protein-calorie malnutrition; R73.9 Hyperglycemia, unspecified; E87.8 Other disorders of electrolyte and fluid balance, not elsewhere classified; I25.10 Atherosclerotic heart disease of native coronary artery without angina pectoris; I35.0 Nonrheumatic aortic (valve) stenosis; F32.9 Major depressive disorder, single episode, unspecified; M1A.9XX0 Chronic gout, unspecified, without tophus (tophi); K21.9 Gastro-esophageal reflux disease without esophagitis; E78.2 Mixed hyperlipidemia; I48.0 Paroxysmal atrial fibrillation; N18.3 Chronic kidney disease, stage 3 (moderate); I12.9 Hypertensive chronic kidney disease with stage 1 through stage 4 chronic kidney disease, or unspecified chronic kidney disease; D64.9 Anemia, unspecified; Z88.6 Allergy status to analgesic agent; Z88.8 Allergy status to other drugs, medicaments and biological substances; Z88.1 Allergy status to other antibiotic agents; Z95.1 Presence of aortocoronary bypass graft; Z95.5 Presence of coronary angioplasty implant and graft; Z98.1 Arthrodesis status; Z82.49 Family history of ischemic heart disease and other diseases of the circulatory system; Z80.8 Family history of malignant neoplasm of other organs or systems; Z79.899 Other long term (current) drug therapy; Z79.82 Long term (current) use of aspirin; Z79.02 Long term (current) use of antithrombotics/antiplatelets; Z68.27 Body mass index [BMI] 27.0-27.9, adult

== ENCOUNTER → 2019-01-08 | Outpatient (CLI) | payer MEDICARE ==
[~2019-01-08] MED LIST changes: +ASPIRIN ADULT L81 M1 PO; +CETIRIZINE HYDR10 MG PO; +MUCINEX ER600 MG PO; +ZITHROMAX250 MG PO
== END | disposition home or self-care (01) ==
LOC: RESCLI 00:43
DX: Z13.31 Encounter for screening for depression (principal); M1A.9XX0 Chronic gout, unspecified, without tophus (tophi); E78.5 Hyperlipidemia, unspecified; I10 Essential (primary) hypertension; I20.8 Other forms of angina pectoris; Z95.5 Presence of coronary angioplasty implant and graft; K59.00 Constipation, unspecified; K21.9 Gastro-esophageal reflux disease without esophagitis; M54.2 Cervicalgia; J06.9 Acute upper respiratory infection, unspecified; M25.50 Pain in unspecified joint; Z79.899 Other long term (current) drug therapy; Z88.8 Allergy status to other drugs, medicaments and biological substances

== ENCOUNTER → 2019-01-21 | Outpatient (CLI) | payer MEDICARE | END | disposition home or self-care (01) | LOC: RESCLI 00:56 | DX: K21.9 Gastro-esophageal reflux disease without esophagitis (principal); I20.8 Other forms of angina pectoris; E78.5 Hyperlipidemia, unspecified; M1A.9XX0 Chronic gout, unspecified, without tophus (tophi); I10 Essential (primary) hypertension; K59.00 Constipation, unspecified; M54.2 Cervicalgia; M25.50 Pain in unspecified joint; J30.2 Other seasonal allergic rhinitis; Z95.5 Presence of coronary angioplasty implant and graft; Z79.899 Other long term (current) drug therapy ==

== ENCOUNTER → 2019-04-23 | Outpatient (CLI) | payer MEDICARE ==
[2019-04-23 15:07] LABS: BASO % 0.5 % (0.0-1.0); EOS # 0.3 10*3/uL (0.0-0.4); EOS % 3.5 % (1.0-4.0); HEMATOCRIT 42.9 % (42.0-52.0); HEMOGLOBIN 14.1 g/dl (14.0-18.0); LYMPH # 1.7 10*3/uL (1.3-4.4); LYMPH % 22.3 % (27.0-41.0); MEAN CELL VOLUME 91.5 fl (80.0-94.0); MEAN CORPUSCULAR HGB 30.1 pg (27.0-31.0); MEAN CORPUSCULAR HGB CONC 32.9 g/dl (33.0-37.0); MONO # 0.9 10*3/uL (0.1-1.0); MONO % 11.6 % (3.0-9.0); NEUT # 4.5 10*3/uL (2.3-7.9); NEUT % 61.4 % (47.0-73.0); PLATELET COUNT AUTOMATED 283 10*3/uL (130-400); RED BLOOD COUNT 4.69 10*6/uL (4.50-5.90); RED CELL DISTRI WIDTH 13.7 % (0-14.5); WHITE BLOOD COUNT 7.4 10*3/uL (4.8-10.8)
[2019-04-23 15:37] LABS: ALBUMIN 3.4 gm/dl (3.1-4.5); CREATININE 1.6 mg/dL (0.70-1.30); POTASSIUM 3.7 mmol/L (3.5-5.1)
== END | disposition home or self-care (01) ==
LOC: RESCLI 01:30 → LAB 01:30 → RESCLI 06:56
PROVIDERS: Internal Medicine
DX: R53.83 Other fatigue (principal); I44.7 Left bundle-branch block, unspecified

== ENCOUNTER 2019-06-18 12:19 | Emergency (ER) | payer MEDICARE ==
[~2019-06-18] VITALS: Ht 175.2 cm; Wt 81.6 kg
[2019-06-18 12:52] LABS: BASO # 0.1 10*3/uL (0.0-0.1); BASO % 0.7 % (0.0-1.0); EOS # 0.3 10*3/uL (0.0-0.4); EOS % 3.4 % (1.0-4.0); HEMATOCRIT 43.6 % (42.0-52.0); LYMPH # 1.6 10*3/uL (1.3-4.4); LYMPH % 21.1 % (27.0-41.0); MEAN CELL VOLUME 90.8 fl (80.0-94.0); MEAN CORPUSCULAR HGB 29.8 pg (27.0-31.0); MEAN CORPUSCULAR HGB CONC 32.8 g/dl (33.0-37.0); MEAN PLATELET VOLUME 9.8 fl (9.6-12.3); MONO # 0.7 10*3/uL (0.1-1.0); MONO % 9.2 % (3.0-9.0); NEUT # 4.9 10*3/uL (2.3-7.9); NEUT % 64.8 % (47.0-73.0); PLATELET COUNT AUTOMATED 279 10*3/uL (130-400); RED CELL DISTRI WIDTH 13.6 % (0-14.5); WHITE BLOOD COUNT 7.6 10*3/uL (4.8-10.8)
[2019-06-18 13:04] LABS: ACT PARTIAL THROMBO TIME 28.3 SECONDS (20.0-32.1)
[2019-06-18 13:08] LABS: ALBUMIN 3.6 gm/dl (3.1-4.5); ALKALINE PHOSPHATASE 90 U/L (45-117); BUN 24 mg/dl (7-24); CHLORIDE 108 mmol/L (98-107); CREATININE 1.52 mg/dL (0.70-1.30); POTASSIUM 3.7 mmol/L (3.5-5.1); SGOT/AST 22 IU/L (3-35); SGPT/ALT 34 U/L (12-78); SODIUM 142 mmol/L (136-145); TOTAL PROTEIN 7.6 gm/dL (6.4-8.2)
[2019-06-18 13:09] LABS: TROPONIN I < 0.015 ng/ml (<0.045)
== END 2019-06-18 14:36 | disposition home or self-care (01) ==
LOC: ED 12:19
PROVIDERS: Emergency Medicine
DX: R07.89 Other chest pain (principal); I25.2 Old myocardial infarction; I10 Essential (primary) hypertension; I25.10 Atherosclerotic heart disease of native coronary artery without angina pectoris; K21.9 Gastro-esophageal reflux disease without esophagitis; Z88.5 Allergy status to narcotic agent; Z88.8 Allergy status to other drugs, medicaments and biological substances; Z88.1 Allergy status to other antibiotic agents; Z79.899 Other long term (current) drug therapy

== ENCOUNTER → 2019-08-05 | Outpatient (CLI) | payer MEDICARE ==
[2019-08-05 13:54] LABS: BASO % 0.4 % (0.0-1.0); EOS # 0.2 10*3/uL (0.0-0.4); EOS % 2.8 % (1.0-4.0); HEMATOCRIT 41.2 % (42.0-52.0); LYMPH # 1.6 10*3/uL (1.3-4.4); LYMPH % 23.8 % (27.0-41.0); MEAN CELL VOLUME 93.8 fl (80.0-94.0); MEAN CORPUSCULAR HGB 30.1 pg (27.0-31.0); MONO % 14.7 % (3.0-9.0); NEUT # 3.9 10*3/uL (2.3-7.9); PLATELET COUNT AUTOMATED 236 10*3/uL (130-400); RED BLOOD COUNT 4.39 10*6/uL (4.50-5.90); RED CELL DISTRI WIDTH 13.6 % (0-14.5); WHITE BLOOD COUNT 6.8 10*3/uL (4.8-10.8)
[2019-08-05 14:32] LABS: ALBUMIN 3.4 gm/dl (3.1-4.5); CREATININE 1.84 mg/dL (0.70-1.30); POTASSIUM 4.1 mmol/L (3.5-5.1); TOTAL PROTEIN 7.2 gm/dL (6.4-8.2)
== END | disposition home or self-care (01) ==
LOC: LAB 13:17
PROVIDERS: Internal Medicine Cardiovascular Disease
DX: R06.09 Other forms of dyspnea (principal)

== ENCOUNTER → 2019-08-21 | Outpatient (CLI) | payer MEDICARE | END | disposition home or self-care (01) | LOC: RESCLI 00:43 | DX: Z01.89 Encounter for other specified special examinations (principal); E78.5 Hyperlipidemia, unspecified; M54.2 Cervicalgia; E04.1 Nontoxic single thyroid nodule; M1A.9XX0 Chronic gout, unspecified, without tophus (tophi); G89.28 Other chronic postprocedural pain; I48.91 Unspecified atrial fibrillation; I12.9 Hypertensive chronic kidney disease with stage 1 through stage 4 chronic kidney disease, or unspecified chronic kidney disease; N18.9 Chronic kidney disease, unspecified; I20.8 Other forms of angina pectoris; Z95.5 Presence of coronary angioplasty implant and graft; K59.00 Constipation, unspecified; K21.9 Gastro-esophageal reflux disease without esophagitis; J30.2 Other seasonal allergic rhinitis; E55.9 Vitamin D deficiency, unspecified; Z79.899 Other long term (current) drug therapy; Z79.82 Long term (current) use of aspirin; Z95.1 Presence of aortocoronary bypass graft; Z95.828 Presence of other vascular implants and grafts; Z98.890 Other specified postprocedural states; Z88.8 Allergy status to other drugs, medicaments and biological substances ==

== ENCOUNTER → 2019-08-26 | Outpatient (CLI) | payer MEDICARE ==
[2019-08-26 13:49] LABS: CLARITY CLEAR (CLEAR); COLOR YELLOW (YELLOW)
[2019-08-26 13:50] LABS: BILIRUBIN 1+ (NEGATIVE); BLOOD NEGATIVE (NEGATIVE); GLUCOSE NEGATIVE (NEGATIVE); KETONE NEGATIVE (NEGATIVE); LEUKO ESTERASE NEGATIVE (NEGATIVE); NITRITE NEGATIVE (NEGATIVE); PH 5.5 (5.0-9.0); UROBILINOGEN 0.2 E.U./dl (0.2-1.0)
[2019-08-26 13:51] LABS: BACTERIA 1+
[2019-08-27 09:10] LABS: CREATININE,URINE 108.1 mg/dL (Not Estab.)
== END | disposition home or self-care (01) ==
LOC: LAB 10:48
PROVIDERS: Internal Medicine
DX: N18.9 Chronic kidney disease, unspecified (principal); E78.5 Hyperlipidemia, unspecified; E04.1 Nontoxic single thyroid nodule; Z01.89 Encounter for other specified special examinations

== ENCOUNTER → 2019-09-17 | Outpatient (CLI) | payer MEDICARE | END | disposition home or self-care (01) | LOC: RESCLI 01:00 | DX: I12.9 Hypertensive chronic kidney disease with stage 1 through stage 4 chronic kidney disease, or unspecified chronic kidney disease (principal); N18.9 Chronic kidney disease, unspecified; K59.00 Constipation, unspecified; M25.50 Pain in unspecified joint; M1A.9XX0 Chronic gout, unspecified, without tophus (tophi); E78.5 Hyperlipidemia, unspecified; I20.8 Other forms of angina pectoris; J30.2 Other seasonal allergic rhinitis; E55.9 Vitamin D deficiency, unspecified; R42 Dizziness and giddiness ==

== ENCOUNTER → 2019-10-27 | Outpatient (CLI) | payer MEDICARE | END | disposition home or self-care (01) | LOC: MRI 10:50 | PROVIDERS: ATTEND Internal Medicine | DX: M48.061 Spinal stenosis, lumbar region without neurogenic claudication (principal); M21.372 Foot drop, left foot ==

== ENCOUNTER → 2020-01-02 | Outpatient (CLI) | payer MEDICARE ==
[2020-01-02 10:17] LABS: CREATININE 1.69 mg/dL (0.70-1.30)
== END | disposition home or self-care (01) ==
LOC: MRI 12-26 10:00 → LAB 09:48 → MRI 10:00
PROVIDERS: Radiology Diagnostic Radiology; ATTEND Internal Medicine
DX: M47.812 Spondylosis without myelopathy or radiculopathy, cervical region (principal); M43.12 Spondylolisthesis, cervical region; M48.02 Spinal stenosis, cervical region; M43.22 Fusion of spine, cervical region

== ENCOUNTER → 2020-02-02 | Outpatient (CLI) | payer MEDICARE | END | disposition home or self-care (01) | LOC: RESCLI 13:37 | PROVIDERS: ATTEND Internal Medicine Nephrology | DX: M54.2 Cervicalgia (principal); I10 Essential (primary) hypertension; K21.9 Gastro-esophageal reflux disease without esophagitis; M1A.9XX0 Chronic gout, unspecified, without tophus (tophi); I48.91 Unspecified atrial fibrillation; E78.5 Hyperlipidemia, unspecified; Z95.5 Presence of coronary angioplasty implant and graft; Z79.899 Other long term (current) drug therapy; Z88.8 Allergy status to other drugs, medicaments and biological substances ==

== ENCOUNTER → 2020-03-22 | Outpatient (CLI) | payer MEDICARE ==
[2020-03-22 12:09] LABS: BASO % 0.6 % (0.0-1.0); EOS # 0.2 10*3/uL (0.0-0.4); EOS % 2.4 % (1.0-4.0); HEMATOCRIT 43.5 % (42.0-52.0); LYMPH # 1.3 10*3/uL (1.3-4.4); LYMPH % 18.8 % (27.0-41.0); MEAN CELL VOLUME 92.4 fl (80.0-94.0); MEAN CORPUSCULAR HGB 29.9 pg (27.0-31.0); MEAN CORPUSCULAR HGB CONC 32.4 g/dl (33.0-37.0); MEAN PLATELET VOLUME 9.9 fl (9.6-12.3); MONO # 0.6 10*3/uL (0.1-1.0); MONO % 8.1 % (3.0-9.0); NEUT % 69.7 % (47.0-73.0); PLATELET COUNT AUTOMATED 271 10*3/uL (130-400); RED BLOOD COUNT 4.71 10*6/uL (4.50-5.90); RED CELL DISTRI WIDTH 13.2 % (0-14.5); WHITE BLOOD COUNT 7.1 10*3/uL (4.8-10.8)
[2020-03-22 12:33] LABS: IRON 80 ug/dL (65-175); TOTAL IRON BINDING CAPACITY 305 ug/dl (250-450)
== END | disposition home or self-care (01) ==
LOC: LAB 11:52
PROVIDERS: Neurological Surgery; ATTEND Physician Assistant
DX: D50.9 Iron deficiency anemia, unspecified (principal)

== ENCOUNTER → 2020-07-14 | Outpatient (CLI) | payer MEDICARE ==
[2020-07-14 11:36] LABS: BASO % 0.5 % (0.0-1.0); EOS # 0.2 10*3/uL (0.0-0.4); EOS % 2.1 % (1.0-4.0); HEMATOCRIT 39.7 % (42.0-52.0); LYMPH # 1.7 10*3/uL (1.3-4.4); LYMPH % 20.8 % (27.0-41.0); MEAN CELL VOLUME 92.3 fl (80.0-94.0); MEAN CORPUSCULAR HGB 28.6 pg (27.0-31.0); MEAN PLATELET VOLUME 9.8 fl (9.6-12.3); MONO # 0.8 10*3/uL (0.1-1.0); MONO % 10.2 % (3.0-9.0); NEUT # 5.2 10*3/uL (2.3-7.9); PLATELET COUNT AUTOMATED 333 10*3/uL (130-400); RED CELL DISTRI WIDTH 13.5 % (0-14.5); WHITE BLOOD COUNT 7.9 10*3/uL (4.8-10.8)
[2020-07-14 12:03] LABS: ALBUMIN 3.5 gm/dl (3.1-4.5); CREATININE 1.83 mg/dL (0.70-1.30); POTASSIUM 3.8 mmol/L (3.5-5.1); TOTAL PROTEIN 7.5 gm/dL (6.4-8.2)
== END | disposition home or self-care (01) ==
LOC: LAB 11:04
PROVIDERS: ATTEND Internal Medicine Cardiovascular Disease
DX: I25.10 Atherosclerotic heart disease of native coronary artery without angina pectoris (principal); R06.00 Dyspnea, unspecified

== ENCOUNTER 2020-07-19 13:43 | Emergency (ER) | payer MEDICARE ==
[~2020-07-19] VITALS: Ht 175.2 cm; Wt 77.1 kg
[2020-07-19 14:31] LABS: BASO # 0.1 10*3/uL (0.0-0.1); BASO % 0.6 % (0.0-1.0); EOS # 0.2 10*3/uL (0.0-0.4); EOS % 2.5 % (1.0-4.0); HEMATOCRIT 37.1 % (42.0-52.0); LYMPH # 1.7 10*3/uL (1.3-4.4); LYMPH % 20.7 % (27.0-41.0); MEAN CELL VOLUME 89.4 fl (80.0-94.0); MEAN CORPUSCULAR HGB 28.7 pg (27.0-31.0); MEAN CORPUSCULAR HGB CONC 32.1 g/dl (33.0-37.0); MEAN PLATELET VOLUME 9.6 fl (9.6-12.3); MONO # 0.7 10*3/uL (0.1-1.0); MONO % 9.1 % (3.0-9.0); NEUT # 5.4 10*3/uL (2.3-7.9); NEUT % 66.7 % (47.0-73.0); PLATELET COUNT AUTOMATED 294 10*3/uL (130-400); RED BLOOD COUNT 4.15 10*6/uL (4.50-5.90); RED CELL DISTRI WIDTH 13.5 % (0-14.5); WHITE BLOOD COUNT 8.1 10*3/uL (4.8-10.8)
[2020-07-19 14:46] LABS: ALBUMIN 3.4 gm/dl (3.1-4.5); ALKALINE PHOSPHATASE 63 U/L (45-117); BUN 28 mg/dl (7-24); CHLORIDE 108 mmol/L (98-107); CREATININE 1.69 mg/dL (0.70-1.30); LIPASE 199 U/L (73-393); POTASSIUM 4.1 mmol/L (3.5-5.1); SGOT/AST 15 IU/L (3-35); SGPT/ALT 19 U/L (12-78); SODIUM 140 mmol/L (136-145)
[2020-07-19 14:48] LABS: TROPONIN I < 0.015 ng/ml (<0.045)
== END 2020-07-19 17:14 | disposition home or self-care (01) ==
LOC: ED 13:43
PROVIDERS: Family Medicine
DX: R06.09 Other forms of dyspnea (principal); Z88.5 Allergy status to narcotic agent; Z88.8 Allergy status to other drugs, medicaments and biological substances; Z79.899 Other long term (current) drug therapy; Z79.82 Long term (current) use of aspirin; Z95.1 Presence of aortocoronary bypass graft; Z98.890 Other specified postprocedural states; Z95.818 Presence of other cardiac implants and grafts

== ENCOUNTER 2020-09-29 14:50 | Inpatient (IN) | payer MEDICARE ==
[~2020-09-29] VITALS: Ht 175.2 cm; Wt 75.4 kg
[2020-09-29 14:56] VITALS: BP 159/80
[2020-09-29 16:00] VITALS: BP 155/87
[2020-09-29 16:13] LABS: BASO % 0.2 % (0.0-1.0); EOS # 0.2 10*3/uL (0.0-0.4); EOS % 2.5 % (1.0-4.0); LYMPH # 1.4 10*3/uL (1.3-4.4); LYMPH % 16.7 % (27.0-41.0); MEAN CELL VOLUME 87.2 fl (80.0-94.0); MEAN CORPUSCULAR HGB 28.3 pg (27.0-31.0); MEAN CORPUSCULAR HGB CONC 32.5 g/dl (33.0-37.0); MEAN PLATELET VOLUME 9.4 fl (9.6-12.3); MONO # 0.8 10*3/uL (0.1-1.0); MONO % 9.7 % (3.0-9.0); NEUT # 5.9 10*3/uL (2.3-7.9); NEUT % 70.4 % (47.0-73.0); PLATELET COUNT AUTOMATED 327 10*3/uL (130-400); RED BLOOD COUNT 3.67 10*6/uL (4.50-5.90); RED CELL DISTRI WIDTH 15.3 % (0-14.5); WHITE BLOOD COUNT 8.4 10*3/uL (4.8-10.8)
[2020-09-29 16:24] LABS: BILIRUBIN Negative (Negative); BLOOD Negative (Negative); CLARITY Clear (Clear); COLOR Yellow (Yellow); GLUCOSE Negative (Negative); KETONE Negative (Negative); LEUKO ESTERASE Negative (Negative); NITRITE Negative (Negative); PH 5.5 (4.5-8.0)
[2020-09-29 16:28] LABS: ALBUMIN 3.3 gm/dl (3.1-4.5); CREATININE 1.7 mg/dL (0.70-1.30); POTASSIUM 3.8 mmol/L (3.5-5.1); TOTAL PROTEIN 6.8 gm/dL (6.4-8.2)
[2020-09-29 16:32] LABS: HYALINE CAST 0-2; RBC 0-2 rbc/hpf (0-2)
[2020-09-29 16:33] LABS: BACTERIA 2+; EPITHELIAL CELLS 0-2
[2020-09-29 19:30] VITALS: BP 169/69
[2020-09-29] MEDS ORDERED: PEPCID20 MG PO (20:05)
[2020-09-29] MEDS ORDERED: REPATHA SY140 MG/1 M SQ (20:35)
[2020-09-29] MEDS ORDERED: NEURONTIN100 MG PO (20:38)
[2020-09-29] MEDS ORDERED: HYDROCODONE-AC1 EAC2 PO (20:39)
[2020-09-29 22:50] VITALS: BP 156/60
[2020-09-29 23:00] VITALS: BP 155/87
[2020-09-30 06:20] LABS: ALBUMIN 3.5 gm/dl (3.1-4.5); POTASSIUM 3.8 mmol/L (3.5-5.1)
[2020-09-30 06:25] LABS: CREATININE 1.47 mg/dL (0.70-1.30); TOTAL PROTEIN 7.4 gm/dL (6.4-8.2)
[2020-09-30 06:26] LABS: BASO % 0.3 % (0.0-1.0); HEMATOCRIT 37.5 % (42.0-52.0); LYMPH # 0.8 10*3/uL (1.3-4.4); LYMPH % 11.4 % (27.0-41.0); MEAN CELL VOLUME 87.2 fl (80.0-94.0); MEAN CORPUSCULAR HGB 27.7 pg (27.0-31.0); MEAN CORPUSCULAR HGB CONC 31.7 g/dl (33.0-37.0); MEAN PLATELET VOLUME 10.2 fl (9.6-12.3); MONO # 0.1 10*3/uL (0.1-1.0); MONO % 1.2 % (3.0-9.0); NEUT % 86.4 % (47.0-73.0); PLATELET COUNT AUTOMATED 356 10*3/uL (130-400); WHITE BLOOD COUNT 6.9 10*3/uL (4.8-10.8)
[2020-09-30 08:00] VITALS: BP 150/77
[2020-09-30 12:00] VITALS: BP 119/74
[2020-09-30 16:00] VITALS: BP 123/81
[2020-09-30 20:00] VITALS: BP 134/73
[2020-10-01] VITALS: BP 115/66
[2020-10-01 06:18] LABS: BASO % 0.1 % (0.0-1.0); HEMATOCRIT 33.2 % (42.0-52.0); LYMPH # 0.9 10*3/uL (1.3-4.4); LYMPH % 8.1 % (27.0-41.0); MEAN CELL VOLUME 86.5 fl (80.0-94.0); MEAN CORPUSCULAR HGB 28.1 pg (27.0-31.0); MEAN CORPUSCULAR HGB CONC 32.5 g/dl (33.0-37.0); MONO # 0.6 10*3/uL (0.1-1.0); MONO % 5.5 % (3.0-9.0); NEUT # 9.5 10*3/uL (2.3-7.9); NEUT % 85.5 % (47.0-73.0); PLATELET COUNT AUTOMATED 385 10*3/uL (130-400); RED BLOOD COUNT 3.84 10*6/uL (4.50-5.90); RED CELL DISTRI WIDTH 15.3 % (0-14.5); WHITE BLOOD COUNT 11.1 10*3/uL (4.8-10.8)
[2020-10-01 06:22] LABS: CREATININE 1.97 mg/dL (0.70-1.30)
[2020-10-01 08:00] VITALS: BP 117/73
[2020-10-01 12:00] VITALS: BP 124/60
== END 2020-10-01 14:28 | disposition home or self-care (01) | DRG 391 ==
LOC: ED 14:50 → EDHOLD 16:43 → 5E 16:43 → EDHOLD 17:27 → 5E 22:21
PROVIDERS: Emergency Medicine; Internal Medicine; ADMIT Family Medicine; ATTEND Family Medicine
DX: K52.9 Noninfective gastroenteritis and colitis, unspecified (principal); N17.0 Acute kidney failure with tubular necrosis; K62.5 Hemorrhage of anus and rectum; E44.1 Mild protein-calorie malnutrition; I48.0 Paroxysmal atrial fibrillation; I35.0 Nonrheumatic aortic (valve) stenosis; E04.1 Nontoxic single thyroid nodule; I12.9 Hypertensive chronic kidney disease with stage 1 through stage 4 chronic kidney disease, or unspecified chronic kidney disease; N18.32 Chronic kidney disease, stage 3b; I73.9 Peripheral vascular disease, unspecified; I25.10 Atherosclerotic heart disease of native coronary artery without angina pectoris; K21.9 Gastro-esophageal reflux disease without esophagitis; E78.5 Hyperlipidemia, unspecified; F32.9 Major depressive disorder, single episode, unspecified; D64.9 Anemia, unspecified; E87.8 Other disorders of electrolyte and fluid balance, not elsewhere classified; E83.41 Hypermagnesemia; E78.2 Mixed hyperlipidemia; M1A.9XX0 Chronic gout, unspecified, without tophus (tophi); E86.0 Dehydration; Z88.6 Allergy status to analgesic agent; Z88.1 Allergy status to other antibiotic agents; Z88.8 Allergy status to other drugs, medicaments and biological substances; Z95.1 Presence of aortocoronary bypass graft; Z95.5 Presence of coronary angioplasty implant and graft; R54 Age-related physical debility

== ENCOUNTER → 2020-11-22 | Outpatient (CLI) | payer MEDICARE ==
[~2020-11-22] MED LIST changes: +HYDROCODONE-AC1 EAC2 PO; +NEURONTIN100 MG PO; +PEPCID20 MG PO; +REPATHA SY140 MG/1 M SQ
[2020-11-22 14:49] LABS: BASO % 0.6 % (0.0-1.0); EOS # 0.2 10*3/uL (0.0-0.4); EOS % 2.9 % (1.0-4.0); LYMPH # 1.7 10*3/uL (1.3-4.4); LYMPH % 23.5 % (27.0-41.0); MEAN CELL VOLUME 92.6 fl (80.0-94.0); MEAN CORPUSCULAR HGB 28.6 pg (27.0-31.0); MEAN CORPUSCULAR HGB CONC 30.9 g/dl (33.0-37.0); MEAN PLATELET VOLUME 10.2 fl (9.6-12.3); MONO # 0.8 10*3/uL (0.1-1.0); MONO % 11.2 % (3.0-9.0); NEUT # 4.4 10*3/uL (2.3-7.9); NEUT % 61.5 % (47.0-73.0); PLATELET COUNT AUTOMATED 285 10*3/uL (130-400); RED BLOOD COUNT 3.78 10*6/uL (4.50-5.90); RED CELL DISTRI WIDTH 13.9 % (0-14.5); WHITE BLOOD COUNT 7.2 10*3/uL (4.8-10.8)
[2020-11-22 15:22] LABS: POTASSIUM 3.7 mmol/L (3.5-5.1)
[2020-11-22 15:33] LABS: ALBUMIN 3.3 gm/dl (3.1-4.5); CREATININE 1.79 mg/dL (0.70-1.30); TOTAL PROTEIN 7.1 gm/dL (6.4-8.2)
== END | disposition home or self-care (01) ==
LOC: RESCLI 00:42 → LAB 00:42 → RESCLI 14:18
PROVIDERS: Internal Medicine Cardiovascular Disease; ATTEND Internal Medicine Nephrology
DX: Z23 Encounter for immunization (principal); R06.00 Dyspnea, unspecified; Z79.899 Other long term (current) drug therapy

== ENCOUNTER → 2020-12-27 | Outpatient (CLI) | payer MEDICARE ==
[2020-12-27 11:12] LABS: BASO % 0.4 % (0.0-1.0); EOS # 0.2 10*3/uL (0.0-0.4); EOS % 2.5 % (1.0-4.0); HEMATOCRIT 35.6 % (42.0-52.0); LYMPH # 1.3 10*3/uL (1.3-4.4); LYMPH % 20.1 % (27.0-41.0); MEAN CELL VOLUME 87.3 fl (80.0-94.0); MEAN CORPUSCULAR HGB CONC 30.9 g/dl (33.0-37.0); MEAN PLATELET VOLUME 9.5 fl (9.6-12.3); MONO # 0.6 10*3/uL (0.1-1.0); MONO % 9.4 % (3.0-9.0); NEUT # 4.5 10*3/uL (2.3-7.9); NEUT % 67.3 % (47.0-73.0); PLATELET COUNT AUTOMATED 335 10*3/uL (130-400); RED BLOOD COUNT 4.08 10*6/uL (4.50-5.90); RED CELL DISTRI WIDTH 13.5 % (0-14.5); WHITE BLOOD COUNT 6.7 10*3/uL (4.8-10.8)
[2020-12-27 11:28] LABS: CREATININE 1.69 mg/dL (0.70-1.30)
== END | disposition home or self-care (01) ==
LOC: LAB 10:46
PROVIDERS: ATTEND Internal Medicine Cardiovascular Disease
DX: Z01.818 Encounter for other preprocedural examination (principal); I25.10 Atherosclerotic heart disease of native coronary artery without angina pectoris; I35.0 Nonrheumatic aortic (valve) stenosis; R06.02 Shortness of breath; Z95.2 Presence of prosthetic heart valve